=== PATIENT | male | born 1955 | race Caucasian/White ===

== ENCOUNTER 2021-03-17 04:15 | Inpatient (IN) | payer OTHER ==
[~2021-03-17] VITALS: Ht 177.8 cm; Wt 96.2 kg
[2021-03-17] VITALS (15 sets, daily range): BP systolic 135–162; BP diastolic 60–74
[2021-03-17 04:46] LABS: HEMATOCRIT 34.8 % (42.0-52.0); HEMOGLOBIN 11.2 gm/dL (14.0-18.0); MCH 26.8 pg (26.0-34.0); MCHC 32.2 g/dL (28.0-37.0); MCV 83.3 fL (80.0-100.0); NUCLEATED RBCS 0 /100WBC; PLATELET COUNT* 291 thou/uL (150-400); RBC 4.18 mil/uL (4.50-6.00); RDW-CV 15.1 % (10.5-14.5); WBC 13.7 thou/uL (4.0-11.0)
[2021-03-17 04:51] LABS: CALCIUM 8.7 mg/dL (8.5-10.1); POTASSIUM 3.9 mmol/L (3.5-5.1)
[2021-03-17 05:02] LABS: ALBUMIN 3.9 g/dL (3.4-5.0); MAGNESIUM 2.5 mg/dL (1.8-2.4); TOTAL BILIRUBIN 0.7 mg/dL (<0.1-1.0); TOTAL PROTEIN 7.9 g/dL (6.4-8.2)
[2021-03-17 05:10] LABS: BE -3.2 mmol/L (-2 to +3); PCO2 38.1 mmHg (35.0-45.0); PO2 113.7 mmHg (75.0-100.0); pH 7.372 (7.340-7.450)
[2021-03-17 05:16] LABS: INFLUENZA A ANTIGEN Negative (Negative); INFLUENZA B ANTIGEN Negative (Negative)
[2021-03-17 05:26] LABS: APTT 26.5 Seconds (25.0-31.3); INR 1.1; PROTIME 11.1 Seconds (9.20-11.50)
[2021-03-17 06:02] LABS: ABSOLUTE LYMPHOCYTES 0.5 thou/uL (0.8-5.3); ABSOLUTE MONOCYTES 1.4 thou/uL (0.0-1.2); ABSOLUTE NEUTROPHILS 11.8 thou/uL (1.6-8.1)
[2021-03-17 06:03] LABS: PLATELET ESTIMATE ADEQUATE
[2021-03-17] MEDS ORDERED: TYLOPHEN500 MG PO (06:38)
[2021-03-17] MEDS ORDERED: NORVASC10 MG PO (06:39)
[2021-03-17] MEDS ORDERED: EAR WAX DROPS15 ML RT. EAR (06:39)
[2021-03-17] MEDS ORDERED: PLAVIX 75 MG TA75 MG PO (06:40)
[2021-03-17] MEDS ORDERED: ZETIA10 MG PO (06:41)
[2021-03-17] MEDS ORDERED: FUROSEMIDE 40 M40 MG PO (06:41)
[2021-03-17] MEDS ORDERED: LEVEMIR FL100 UNIT/2 SUBQ (06:42)
[2021-03-17] MEDS ORDERED: MENTHOL/M-SALICYLATE TOP (06:45)
[2021-03-17] MEDS ORDERED: CURCUMIN1 GM PO (06:46)
[2021-03-17] MEDS ORDERED: ONE-DAILY MULT1 EAC1 PO (06:47)
--- NOTE | 2021-03-17 13:21 | 2DMMODE ---
[place] [address] 2 D/M-MODE ECHOCARDIOGRAM Name: LAUREN SOLIS Room: [address] IN [facility]#: [id number] Admission: 03/17/21 Attend Phys: Jugn Lackey Discharge: Date of : 57 Date of Service: 03/17/21 1320 Report #: [id number] THIS REPORT FOR: cc: FAM - Family physician unknown FAM - Family physician unknown Jasper Parker MD [facility] ~ APPROVED REPORT Study performed: 03/17/2021 09:45:53 EXAM: Comprehensive 2D, Doppler, and color-flow Echocardiogram Patient Location: In-Patient Room #: 006 Status: routine BSA: 2.14 HR: 75 bpm BP: 135/61 mmHg Rhythm: NSR Other Information Study Quality: Good Indications Congestive Heart Failure 2D Dimensions IVSd: 13.36 (7-11mm) LVOT Diam: 21.52 (18-24mm) LVDd: 53.83 mm PWd: 12.32 (7-11mm) Ascending Ao: 32.88 (22-36mm) LVDs: 37.75 (25-40mm) Aortic Root: 32.75 mm Volumes Left Atrial Volume (Systole) LA ESV Index: 35.10 mL/m2 Aortic Valve AoV Peak Gino.: 1.37 m/s AO Peak Gr.: 7.50 mmHg LVOT Max P.67 mmHg AO Mean Gr.: 4.13 mmHg LVOT Mean P.73 mmHg LVOT Max V: 0.96 m/s AO V2 VTI: 27.93 cm LVOT Mean V: 0.60 m/s ERNESTO (VTI): 2.65 cm2 LVOT V1 VTI: 20.32 [place] [address] 2 D/M-MODE ECHOCARDIOGRAM Name: LAUREN SOLIS Room: [address] IN ..#: [id number] Admission: 03/17/21 Attend Phys: Jung Lackey Discharge: Date of : 57 Date of Service: 03/17/21 1320 Report #: [id number] Mitral Valve E/A Ratio: 1.95 MV Decel. Time: 167.83 ms MV E Max Gino.: 0.94 m/s MV PHT: 48.67 ms MVA (PHT): 4.52 cm2 TDI E/Lateral E': 7.23 E/Medial E': 8.55 Medial E' Gino.: 0.11 m/s Lateral E' Gino.: 0.13 m/s Pulmonary Valve PV Peak Gino.: 1.06 m/s PV Peak Gr.: 4.49 mmHg Tricuspid Valve RAP Estimate: 5.00 mmHg TR Peak Gr.: 53.24 mmHg RVSP: 58.00 mmHg PA Pressure: 58.00 mmHg Left Ventricle The left ventricle is normal size. There is a segmental wall motion abnormality with inferoapical hypokinesis noted. Mild concentric left ventricular hypertrophy. Left ventricular systolic function is mildly decreased. LVEF is 45-50%. Grade IV - fixed restrictive diastolic dysfunction. Right Ventricle The right ventricle is normal size. The right ventricular systolic function is normal. Atria Left atrium is borderline dilated. The right atrium size is normal. Aortic Valve Mild aortic valve sclerosis. No aortic regurgitation is present. There is no aortic valvular stenosis. Mitral Valve The mitral valve is normal in structure. Mild mitral regurgitation. No evidence of mitral valve stenosis. Tricuspid Valve The tricuspid valve is normal in structure. Mild tricuspid regurgitation. Mod[place] [address] 2 D/M-MODE ECHOCARDIOGRAM Name: LAUREN SOLIS Room: [address] IN [facility]#: [id number] Admission: 03/17/21 Attend Phys: Jung Lackey Discharge: Date of : 57 Date of Service: 03/17/21 1320 Report #: [id number] Pulmonic Valve The pulmonary valve is normal in structure. There is no pulmonic valvular regurgitation. Great Vessels The aortic root is normal in size. IVC is normal in size and collapses >50% with inspiration. Pericardium There is no pericardial effusion. Left pleural effusion. <Conclusion> The left ventricle is normal size. Mild concentric left ventricular hypertrophy. Left ventricular systolic function is mildly decreased. LVEF is 45-50%. The right ventricle is normal size. Left atrium is borderline dilated. Mild aortic valve sclerosis. No aortic regurgitation is present. There is no aortic valvular stenosis. The mitral valve is normal in structure. Mild mitral regurgitation. The tricuspid valve is normal in structure. Mild tricuspid regurgitation. Moderate pulmonary hypertension. IVC is normal in size and collapses >50% with inspiration. There is no pericardial effusion. There is a segmental wall motion abnormality with inferoapical hypokinesis noted. <ELECTRONICALLY SIGNED> By: Jasper Parker MD, FACC 03/17/21 1320 1320 132 Jasper Parker MD, FACC /INF
[2021-03-17 16:57] LABS: URINE BILIRUBIN NEGATIVE (Negative); URINE BLOOD NEGATIVE (Negative); URINE CLARITY CLEAR; URINE COLOR YELLOW; URINE GLUCOSE-RANDOM NEGATIVE (Negative); URINE KETONES NEGATIVE (Negative); URINE LEUKOCYTES-REFLEX NEGATIVE (Negative); URINE NITRITE-REFLEX NEGATIVE (Negative); URINE PROTEIN 2+ (Negative); URINE UROBILINOGEN 0.2 E.U./dl (0.2-1.0)
[2021-03-17 17:05] LABS: BACTERIA-REFLEX None Seen /HPF (None Seen); CASTS None Seen /LPF (None Seen); CRYSTALS None Seen /LPF (None Seen); MUCUS 4-6 Moderate strn/LPF (None Seen); SQUAMOUS 0-3 Few /LPF (0-3); URINE RBC None Seen /HPF (0-2); URINE WBC-REFLEX None Seen /HPF (0-5)
[2021-03-18] VITALS: BP 159/69
[2021-03-18 04:00] VITALS: BP 145/72
[2021-03-18 08:00] VITALS: BP 165/75
[2021-03-18 11:36] LABS: HEMATOCRIT 29.8 % (42.0-52.0); HEMOGLOBIN 9.8 gm/dL (14.0-18.0); MCH 27.4 pg (26.0-34.0); MCHC 32.9 g/dL (28.0-37.0); MCV 83.1 fL (80.0-100.0); MPV 7.1 fl. (7.2-11.1); NUCLEATED RBCS 0 /100WBC; PLATELET COUNT* 237 thou/uL (150-400); RBC 3.58 mil/uL (4.50-6.00); RDW-CV 15.5 % (10.5-14.5); WBC 10.9 thou/uL (4.0-11.0)
[2021-03-18 11:59] LABS: ALBUMIN 3.2 g/dL (3.4-5.0); CALCIUM 8.8 mg/dL (8.5-10.1); CREATININE 3.6 mg/dL (0.6-1.3); POTASSIUM 3.9 mmol/L (3.5-5.1); TOTAL BILIRUBIN 0.7 mg/dL (<0.1-1.0); TOTAL PROTEIN 7.3 g/dL (6.4-8.2)
[2021-03-18 12:00] VITALS: BP 159/65
[2021-03-18 12:12] LABS: ABSOLUTE EOSINOPHILS 0.1 thou/uL (0.0-0.7); ABSOLUTE LYMPHOCYTES 1.1 thou/uL (0.8-5.3); ABSOLUTE MONOCYTES 0.8 thou/uL (0.0-1.2); ABSOLUTE NEUTROPHILS 8.9 thou/uL (1.6-8.1)
[2021-03-18 12:13] LABS: ALBUMIN 3.2 g/dL (3.4-5.0); CALCIUM 8.8 mg/dL (8.5-10.1); CREATININE 3.6 mg/dL (0.6-1.3); MAGNESIUM 2.7 mg/dL (1.8-2.4); PHOSPHORUS* 3.8 mg/dL (2.5-4.9); PLATELET ESTIMATE ADEQUATE; POTASSIUM 3.9 mmol/L (3.5-5.1)
--- NOTE | 2021-03-18 15:13 | EKG ---
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
--- NOTE | 2021-03-18 15:13 | EKG ---
[place] [address] ELECTROCARDIOGRAM REPORT Name: LAUREN SOLIS Room: [place] [address] ADM IN [facility].#: [id number] Admission: 03/17/21 Attend Phys: Jung Lackey Discharge: Date of : 57 Date of Service: 03/17/21 0415 Report #: [id number] THIS REPORT FOR: //name// [facility] ED Test Date: 2021-03-17 Test Time: 04:15:45 Pat Name: LAUREN SOLIS Department: Room: 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
[2021-03-18 16:00] VITALS: BP 157/70
[2021-03-18 19:47] VITALS: BP 153/67
[2021-03-19] VITALS: BP 154/70
[2021-03-19 04:00] VITALS: BP 140/61
[2021-03-19 08:02] VITALS: BP 147/68
[2021-03-19 08:45] LABS: HEMATOCRIT 29.8 % (42.0-52.0); HEMOGLOBIN 9.8 gm/dL (14.0-18.0); MCH 27.2 pg (26.0-34.0); MCHC 32.7 g/dL (28.0-37.0); MCV 83.1 fL (80.0-100.0); MPV 7.3 fl. (7.2-11.1); RBC 3.59 mil/uL (4.50-6.00); RDW-CV 14.9 % (10.5-14.5); WBC 9.3 thou/uL (4.0-11.0)
[2021-03-19 12:42] VITALS: BP 146/65
[2021-03-19 14:07] LABS: ALBUMIN 3.1 g/dL (3.4-5.0); CREATININE 3.7 mg/dL (0.6-1.3); POTASSIUM 3.5 mmol/L (3.5-5.1); TOTAL BILIRUBIN 0.7 mg/dL (<0.1-1.0); TOTAL PROTEIN 7.4 g/dL (6.4-8.2)
[2021-03-19 17:00] VITALS: BP 156/71
[2021-03-19 19:46] VITALS: BP 148/67
[2021-03-20] VITALS: BP 154/72
[2021-03-20 04:00] VITALS: BP 160/74
[2021-03-20 05:40] LABS: HEMATOCRIT 26.2 % (42.0-52.0); HEMOGLOBIN 8.8 gm/dL (14.0-18.0); MCH 27.4 pg (26.0-34.0); MCHC 33.5 g/dL (28.0-37.0); MCV 81.8 fL (80.0-100.0); MPV 7.2 fl. (7.2-11.1); RBC 3.2 mil/uL (4.50-6.00); RDW-CV 14.7 % (10.5-14.5)
[2021-03-20 05:56] LABS: CALCIUM 8.7 mg/dL (8.5-10.1); CREATININE 3.4 mg/dL (0.6-1.3); POTASSIUM 3.2 mmol/L (3.5-5.1)
[2021-03-20 08:00] VITALS: BP 165/73
[2021-03-20 11:44] VITALS: BP 157/72
[2021-03-20 16:46] VITALS: BP 155/69
[2021-03-20 20:00] VITALS: BP 165/79
[2021-03-21 00:15] VITALS: BP 160/79
[2021-03-21 05:17] LABS: CALCIUM 8.9 mg/dL (8.5-10.1); CREATININE 3.3 mg/dL (0.6-1.3); MAGNESIUM 2.7 mg/dL (1.8-2.4); POTASSIUM 3.8 mmol/L (3.5-5.1)
[2021-03-21 06:58] VITALS: BP 138/63
[2021-03-21] MEDS ORDERED: HYDRALAZINE 2525 MG PO (08:54)
[2021-03-21] MEDS ORDERED: DEMADEX20 MG PO (08:54)
[2021-03-21] MEDS ORDERED: KLOR-CON M2020 MEQ PO (08:54)
[2021-03-21 09:32] VITALS: BP 145/67
[2021-03-21 12:26] VITALS: BP 158/73
[2021-03-21] MEDS ORDERED: CEFDINIR300 MG PO (13:09)
[2021-03-21 15:21] VITALS: BP 158/73
--- NOTE | 2021-03-22 10:35 | CON ---
[address] [address] CONSULTATION Name: LAUREN SOLIS Room: [address] IN [facility]#: [id number] Admission: 03/17/21 Attend Phys: Figueroa Walden Discharge: 03/21/21 Date of : 57 Report #: [id number] THIS REPORT FOR: cc: ANNA - Family physician unknown ANNA - Family physician unknown Ashok Cobos MD ~ DATE OF CONSULTATION: 03/17/2021 NEPHROLOGY CONSULTATION REASON FOR CONSULTATION: Acute kidney injury and chronic kidney disease. CONSULTING PHYSICIAN: Jung Lackey DO. HISTORY OF PRESENT ILLNESS: A 65-year-old gentleman who has underlying chronic kidney disease stage 4 and follows at the [facility]. He tells me that his last visit was about a month to month and a half ago and he was told he had stable chronic kidney disease and dialysis was not brought up with his manager account management nor was transplant. He comes in because of shortness of breath. He tells me he was hospitalized in [place] or October with shortness of breath and he also had hypertension, at some point underwent what sounds like a renal angiogram and was not found to have any blockage in his blood vessels. He comes in with shortness of breath. He did run out of his Lasix, but only missed one dose. He is otherwise doing well. He was started on BiPAP. He feels much better now and appears to be comfortable. REVIEW OF SYSTEMS: Constitutional, psych, heme, eyes, ENT, respiratory, cardiac, GI, , endocrine, all negative except as documented above. PAST MEDICAL HISTORY: Chronic kidney disease, insulin-dependent diabetes, hypertension, dyslipidemia. FAMILY HISTORY: Nonpertinent for this 65-year-old gentleman. CURRENT MEDICATIONS: Reviewed. SOCIAL HISTORY: Denies illicit drugs. PHYSICAL EXAMINATION: VITAL SIGNS: Blood pressure 159/69, pulse 71, respirations 19, temperature 37.1. GENERAL: No acute distress. EYES: Open. EARS: Externally normal. NECK: [place] [address] CONSULTATION Name: LAUREN SOLIS Room: [address]#: [id number] Admission: 03/17/21 Attend Phys: Figueroa Walden Discharge: 03/21/21 Date of : 57 Report #: [id number] CARDIOVASCULAR: Regular rate. LUNGS: Diminished. GASTROINTESTINAL: Negative. MUSCULOSKELETAL: Mild swelling, no tenderness. PSYCHIATRIC: Awake, alert. NEUROLOGIC: No asterixis. LABORATORY DATA: White cell count 13.7, hemoglobin 11.2, platelets 291. Sodium 139, potassium 3.9, chloride 100, bicarbonate 24, BUN 63, creatinine 4, glucose 240, calcium 8.7, magnesium 2.5, albumin 3.9. ASSESSMENT: 1. Acute kidney injury with admission creatinine of 4. Baseline creatinine is unknown. This is in the setting of volume overload. He also did undergo what sounds like a renal angiogram a few months ago. 2. Chronic kidney disease stage IV, followed by a [facility] manager account management, Dr. Shruthi Cobos, reportedly was last seen about 1-2 months ago. 3. Hypertension for over 40 years. 4. Volume overload demonstrated on chest x-ray with evidence of pulmonary edema. 5. Insulin-dependent diabetes. PLAN: 1. We will give one dose of IV Lasix and start a Lasix drip. 2. Obtain records from [facility]. 3. Check UA, renal ultrasound, CK. 4. Monitor I's and O's. 5. Case was discussed with patient in detail. Discussed the possibility of hemodialysis if no response to diuretic therapy. Case also discussed with Cardiology. We will check lab again in a.m. Thank you for requesting my opinion in the care and management of this patient. <ELECTRONICALLY SIGNED> By: Ashok Cobos MD 03/22/21 1035 0952 1817Areese Cobos MD /nt
== END 2021-03-21 15:25 | disposition home or self-care (01) | DRG 177 ==
LOC: M.ERS 04:15 → M.TBA-ER 05:55 → M.ICU 09:19 → M.2W 20:30
PROVIDERS: Internal Medicine; Internal Medicine Nephrology; Personal Emergency Response Attendant; ADMIT Internal Medicine; ATTEND Internal Medicine
DX: J69.0 Pneumonitis due to inhalation of food and vomit (principal); I21.A1 Myocardial infarction type 2; J96.01 Acute respiratory failure with hypoxia; I50.43 Acute on chronic combined systolic (congestive) and diastolic (congestive) heart failure; N17.0 Acute kidney failure with tubular necrosis; I13.0 Hypertensive heart and chronic kidney disease with heart failure and stage 1 through stage 4 chronic kidney disease, or unspecified chronic kidney disease; N18.4 Chronic kidney disease, stage 4 (severe); E11.22 Type 2 diabetes mellitus with diabetic chronic kidney disease; I27.20 Pulmonary hypertension, unspecified; Z20.822 Contact with and (suspected) exposure to COVID-19; E78.5 Hyperlipidemia, unspecified; Z88.8 Allergy status to other drugs, medicaments and biological substances; Z79.4 Long term (current) use of insulin; Z79.82 Long term (current) use of aspirin; Z79.899 Other long term (current) drug therapy; Z83.6 Family history of other diseases of the respiratory system; Z83.3 Family history of diabetes mellitus; Z86.16 Personal history of COVID-19